=== PATIENT | male | born 1995 | race Caucasian/White ===

== ENCOUNTER 2019-05-05 03:25 | Emergency (ER) | payer SELFPAY ==
[~2019-05-05] VITALS: Ht 170.2 cm; Wt 77.1 kg
[2019-05-05 03:25] VITALS: BP 150/83
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
[2019-05-05 03:32] VITALS: BP 150/83
--- NOTE | 2019-05-05 03:32 | NUR ---
DISPATIENT EXAMINED BY DR. PASTRANA. PATIENT MEDICALLY CLEARED AND RELEASED IN CUSTODY IN STABLE CONDITION. ORIGINAL PRE-BOOK FORM GIVEN TO [facility].
== END 2019-05-05 03:32 ==
LOC: MED 03:25
DX: Z02.89 Encounter for other administrative examinations (principal); V89.2XXA Person injured in unspecified motor-vehicle accident, traffic, initial encounter; Y93.89 Activity, other specified; Y92.89 Other specified places as the place of occurrence of the external cause; Y99.8 Other external cause status
CPT/HCPCS: 99283